=== PATIENT | female | born 1945 | race Caucasian/White ===

== ENCOUNTER 2021-08-20 14:17 | Emergency (ER) | payer MEDICARE, OTHER, SELFPAY ==
--- NOTE | ~2021-08-20 | CT_ITS ---
EXAMINATION: CT abdomen pelvis wo con DATE: 08/20/2021 14:51 INDICATION: Left flank increased pain. Past history of kidney stones TECHNIQUE: Computed tomography (CT) of the abdomen and pelvis was performed without intravenous contr ast. Automated exposure control and iterative reconstruction technique were employed. Exam dose: 689 .56 mGy-cm total exam DLP. COMPARISON: None. FINDINGS: Minimal dependent atelectasis at the lower lobes. Calcified left lower lobe pulmonary granu elvie. Normal heart size. No pericardial or pleural effusion. Diffuse hepatic steatosis. No hepatic, splenic, pancreatic space-occupying mass lesion. Status post cholecystectomy. No bile duct or pancreatic duct dilatation. Approximately 16 x 20 mm right adrenal mass and approximately 8 x 13 mm left adrenal mass, likely due to adenomas if there is no known malignancy. Approximately 2.7 x 5 mm nonobstructing right renal calculus. Approximately 4.3 x 6.9 mm nonobstructi ng left renal calculus. Status post lower pole left renal resection or scarring. No apparent renal mass lesion is evident on this limited noncontrast examination. No left or right ureteral calculus or left or right hydroureteronephrosis. The urinary bladder appears essentially unremarkable. There is considerable streak artifact from a ri ght total hip replacement, limiting evaluation of the pelvic structures. The uterus and adnexal areas appear unremarkable. There is calcification but normal caliber of the abdominal aorta. No intraperitoneal or retroperitone al or pelvic mass lesion or adenopathy or ascites. There are multiple diverticula of the sigmoid and descending colon; no CT evidence of diverticulitis. No bowel obstruction or intraperitoneal free air. Status post right total hip arthroplasty. Prominent left hip osteoarthritis. There is osteopenia. There is degenerative change of the thoracic and lumbar spine. IMPRESSION: Suggestion of partial resection of the lower pole of the left kidney There is a nonobstructing calculus of each kidney. No urinary tract obstruction or hydroureteronephro sis Hepatic steatosis Status post cholecystectomy Bilateral adrenal masses, likely adenomas if there is no known history of cancer Diverticulosis of left colon; no evidence of diverticulitis Right hip arthroplasty Reviewed, dictated and finalized at [facility]. Reviewed, dictated and finalized at [facility]. IMPRESSION: Suggestion of partial resection of the lower pole of the left kidn ey There is a nonobstructing calculus of each kidney. No urinary tract obstruction or hydroureteronephrosis Hepatic steatosis Status post cholecystectomy Bilateral adrenal masses, likely adenomas if there is no known history of cance r Diverticulosis of left colon; no evidence of diverticulitis Right hip arthroplasty
[2021-08-20 14:22] VITALS: BP 179/73; PULSE 75; RESP 18; TEMP 36.7; O2SAT 95
--- NOTE | 2021-08-20 14:31 | ED.ABDPAIN ---
HPI - Abdominal Pain General Chief Complaint: Abdominal Pain Stated Complaint: L flank pain Time Seen by Provider: 08/20/21 14:21 History of Present Illness HPI narrative: 75-year-old female here for evaluation of right flank pain. Patient states that the pain has been intermittent for about a week. He does have a history of kidney stones, and she does note that she has passed several kidney stone spontaneously over the past week since developing the pain. Today, the pain is more severe, has been relatively constant, and she has not passed a kidney stone yet today. Denies taking any medication for her pain. Denies nausea, vomiting, diarrhea, abdominal pain, fevers, dysuria, hematuria. Related Data Home Medications Medication Instructions Recorded Confirmed Albuterol Inhaler 02/08/19 Flonase Allergy Relief 02/08/19 Lantus Solostar U-100 Insulin 02/08/19 Victoza 3-Hermelindo 02/08/19 Vitamin D3 02/08/19 coenzyme Q10 10 mg capsule 10 mg PO ONCE 02/08/19 02/08/19 diltiazem HCl 120 mg 120 mg PO BID 02/08/19 02/08/19 capsule,extended release 12 hr fluticasone furoate 200 1 inh inhalation DAILY 02/08/19 02/08/19 mcg-vilanterol 25 mcg/dose inhalation powder (Breo Ellipta) glimepiride 2 mg tablet 2 mg PO QAM 02/08/19 02/08/19 montelukast 10 mg tablet 10 mg PO HS 02/08/19 02/08/19 omega 8-nzl-hyb-fish oil 1,000 mg 1 cap PO DAILY 02/08/19 02/08/19 (120 mg-180 mg) capsule (Fish Oil) omeprazole 20 mg tablet,delayed 20 mg PO DAILY 02/08/19 02/08/19 release oxybutynin chloride 5 mg tablet 5 mg PO BID 02/08/19 02/08/19 rosuvastatin 10 mg tablet 10 mg PO DAILY 02/08/19 02/08/19 Allergies Allergy/AdvReac Type Severity Reaction Status Date / Time Contrast Media Allergy Severe SEVERE Uncoded 08/09/15 13:04 BACK ACHE Review of Systems Review of Systems: Gen: Denies fevers or chills Eyes: Denies eye pain or visual change ENT: Denies congestion Respiratory: Denies shortness of breath or cough CV: Denies chest pain or palpitations GI: Denies abdominal pain nausea, emesis or diarrhea denies burning, urgency, frequency or hematuria Musculoskeletal: Reports flank pain. Denies back pain or muscle pain Neuro: Denies numbness, tingling, weakness or focal weakness Skin: Denies rash Except as documented, all other systems reviewed and negative PMFSH Family History Family History Mother Family history of malignant neoplasm of urinary bladder Father Family history of heart disease in male family member before age 55 Social History Social History Smoking status: Never smoker Alcohol intake: never Exam Narrative: APPEARANCE: Well appearing, no pain in distress, well-nourished. Head: Normocephalic and atraumatic. EYES: PERRLA/EOMI, conjunctivae clear NOSE: No nasal drainage EARS: External ear normal in appearance THROAT: Oropharynx is clear. Mucous membranes are moist. NECK: Supple. No adenopathy, no masses. RESPIRATORY: Airway patent, respirations nonlabored. Clear to auscultation bilaterally, no rales, rhonchi, wheezing. CARDIOVASCULAR: Regular rate and rhythm without murmurs, rubs, or gallops. ABDOMINAL: Normoactive bowel sounds. Soft, nontender, nondistended. No rebound tenderness or guarding. MUSCULOSKELETAL: No midline tenderness to C,T or L-spine. No CVA tenderness. Extremities are warm and well-perfused. Moves all extremities well. No edema. NEURO: Normal speech. No focal neurologic deficits. SKIN: Skin is warm and dry. No rashes. PSYCHIATRIC: Normal affect/mood. Course Vital Signs Vital signs: Vital Signs Temperature 98.1 F 08/20/21 14:22 Pulse Rate 75 08/20/21 14:22 Respiratory Rate 18 08/20/21 14:22 Blood Pressure 179/73 H 08/20/21 14:22 Pulse Oximetry 95 08/20/21 14:22 Oxygen Delivery Room Air 08/20/21 14:22 Temperature 98.1 F 08/20/21 14:22 Pulse Ra
[2021-08-20] MEDS: MORPHINE SULFATE (*CRX) 4 MG/ML INJ IV PUSH (14:35)
[2021-08-20 15:17] LABS: Basophils Percent Auto 0.4 % (0.2-1.2); Eosinophils Absolute Auto 0.1 K/mm3 (0-0.3); Eosinophils Percent Auto 1.2 % (0-4.4); Hematocrit 46.7 % (37.0-47.0); Hemoglobin 15.4 g/dL (12.0-15.0); Immature Granulocyte Absolute 0.03 K/mm3 (0.00-0.031); Immature Granulocyte Percent A 0.3 % (0-0.5); Lymphocytes Absolute Auto 2.09 K/mm3 (0.9-3.2); Lymphocytes Percent Auto 23.1 % (18.3-44.2); Mean Corpuscular Hemoglobin 29.8 pg (26-34); Mean Corpuscular Volume 90.3 fl (80-100); Mean Platelet Volume 9.1 fl (7.4-10.4); Monocytes Absolute Auto 0.6 K/mm3 (0.1-0.6); Monocytes Percent Auto 6.5 % (2.6-8.5); Neutrophils Absolute Auto 6.2 K/mm3 (1.3-6.7); Neutrophils Percent Auto 68.5 % (45.5-73.1); Platelet Count Result 278 k/mm3 (150-375); Red Blood Count 5.17 M/mm3 (4.2-5.4); Red Cell Distribution Width 12.2 % (11.5-14.5); White Blood Count 9.1 K/mm3 (4.5-10.0)
[2021-08-20 15:26] LABS: Alanine Aminotransferase 47 U/L (6-35); Albumin Level 4.5 g/dL (3.5-5.1); Alkaline Phosphatase 84 U/L (38-126); Anion Gap 7 mmol/L (8-16); Aspartate Amino Transferase 34 U/L (14-36); Bilirubin,Total 0.5 mg/dL (0.2-1.3); Blood Urea Nitrogen 15 mg/dL (7-17); Calcium 9.4 mg/dL (8.4-10.2); Carbon Dioxide 30 mmol/L (22-30); Chloride 102 mmol/L (98-107); Estimated CRCL calculation 63 ml/min; Estimated Glomerular Filt Rate > 60; Glucose 123 mg/dL (65-110); Potassium 3.9 mmol/L (3.4-5.0); Sodium 139 mmol/L (137-145)
[2021-08-20 16:30] VITALS: BP 142/70; PULSE 60; RESP 18; O2SAT 99
[2021-08-20 16:57] LABS: Appearance Urine Clear (Clear); Bilirubin Urine Negative (Negative); Color Urine Yellow (Yellow); Glucose Urine UA Negative (Negative); Ketones Urine Negative (Negative); Leukocyte Esterase Ur Trace LEU/UL (Negative); Nitrate Urine Negative (Negative); Protein Urine Negative (Negative); Specific Grav Ur 1.025 (1.001-1.035); pH Urine 6.5 (5.0-9.0)
[2021-08-20 17:03] LABS: Mucus Urine Rare /lpf; Squamous Epithelial Cell Urine Rare /hpf (Few); WBC Urine 21-30 /hpf
[2021-08-20 17:04] LABS: Add Urine Microscopic? YES; Blood Urine Trace-Intact (Negative)
[2021-08-20] MEDS: KETOROLAC 15 MG/ML VIAL (*BKC) IV PUSH (17:20)
[2021-08-20 18:33] VITALS: BP 138/72; PULSE 78; RESP 20; O2SAT 99
== END 2021-08-20 18:35 | disposition home or self-care (01) ==
PROVIDERS: Physician Assistant; Emergency Provider Emergency Medicine
DX: N20.0 Calculus of kidney (principal); E11.9 Type 2 diabetes mellitus without complications; K76.0 Fatty (change of) liver, not elsewhere classified; E27.8 Other specified disorders of adrenal gland; K57.90 Diverticulosis of intestine, part unspecified, without perforation or abscess without bleeding; Z96.641 Presence of right artificial hip joint; Z79.4 Long term (current) use of insulin
CPT/HCPCS: 36415; 74176; 80053; 81001; 85025; 87086; 87088; 96374; 96375; 99284; J1885; J2270

== ENCOUNTER 2021-11-22 14:43 | Emergency (ER) | payer MEDICARE, OTHER, SELFPAY ==
--- NOTE | ~2021-11-22 | XR_ITS ---
XR knee RT min 4V 11/22/2021 16:35 Indication: Right knee pain with swelling Procedure: 4 views right knee Comparison: No prior studies for comparison. Findings: There is moderate tricompartment osteoarthritis. Large joint effusion. No fracture or traum atic malalignment. Osteopenia. Impression: 1: Moderate tricompartment osteoarthritis of the right knee. 2: Large joint effusion. Reviewed, dictated and finalized at [facility]. Impression: 1: Moderate tricompartment osteoarthritis of the right knee. 2: Large joint effusion.
--- NOTE | ~2021-11-22 | US_ITS ---
EXAMINATION: US venous doppler LE RT DATE: 11/22/2021 15:51 INDICATION: Right lower limb swelling TECHNIQUE: Moreno scale images without and with compression and Doppler images of the right lower extre mity veins were obtained. COMPARISON: [id number] FINDINGS: The right common femoral vein, profunda femoral vein, femoral vein, popliteal vein, peronea l trunk, posterior tibial veins, and greater saphenous vein are patent. IMPRESSION: 1. Patent right lower extremity veins. No evidence of deep venous thrombosis. Reviewed, dictated and finalized at [facility].
[2021-11-22 14:47] VITALS: BP 158/62; PULSE 80; RESP 18; TEMP 37.1; O2SAT 97
[2021-11-22 15:06] VITALS: BP 169/67; PULSE 74; RESP 16; O2SAT 95
[2021-11-22 15:51] VITALS: BP 156/78; PULSE 72; RESP 16; O2SAT 100
--- NOTE | 2021-11-22 16:20 | ED.EXTPRO ---
HPI - Extremity Problem General Chief complaint: Extremity Problem,Nontraumatic Stated complaint: right leg swelling Time Seen by Provider: 11/22/21 15:42 Source: patient Mode of arrival: ambulatory Limitations: no limitations History of Present Illness HPI Narrative: This is a 76-year-old female that presents to the emergency department for right knee pain ongoing over the last 5 days. Reports she was helping her daughter move and had been lifting some boxes. She noted some swelling and pain to the knee. The swelling and pain has started to radiate down her leg. She was sent from urgent care to evaluate for a DVT. Denies fever, erythema, or warmth. Related Data Home Medications Medication Instructions Recorded Confirmed Albuterol Inhaler 02/08/19 Flonase Allergy Relief 02/08/19 Lantus Solostar U-100 Insulin 02/08/19 Victoza 3-Hermelindo 02/08/19 Vitamin D3 02/08/19 coenzyme Q10 10 mg capsule 10 mg PO ONCE 02/08/19 02/08/19 diltiazem HCl 120 mg 120 mg PO BID 02/08/19 02/08/19 capsule,extended release 12 hr fluticasone furoate 200 1 inh inhalation DAILY 02/08/19 02/08/19 mcg-vilanterol 25 mcg/dose inhalation powder (Breo Ellipta) glimepiride 2 mg tablet 2 mg PO QAM 02/08/19 02/08/19 montelukast 10 mg tablet 10 mg PO HS 02/08/19 02/08/19 omega 4-brn-pze-fish oil 1,000 mg 1 cap PO DAILY 02/08/19 02/08/19 (120 mg-180 mg) capsule (Fish Oil) omeprazole 20 mg tablet,delayed 20 mg PO DAILY 02/08/19 02/08/19 release oxybutynin chloride 5 mg tablet 5 mg PO BID 02/08/19 02/08/19 rosuvastatin 10 mg tablet 10 mg PO DAILY 02/08/19 02/08/19 Allergies Allergy/AdvReac Type Severity Reaction Status Date / Time Contrast Media Allergy Severe SEVERE Uncoded 08/09/15 13:04 BACK ACHE Review of Systems Review of Systems: CONSTITUTIONAL: Denies fever MUSCULOSKELETAL: Reports joint pain, and myalgia. NEUROLOGIC: Denies numbness All systems reviewed & are unremarkable except as noted in HPI and below PMFSH Past Medical History Medical History (Updated 11/22/21 @ 17:09 by Patty Nunez PA-C) History of diabetes mellitus History of hyperlipidemia History of hypertension Family History Family History Mother Family history of malignant neoplasm of urinary bladder Father Family history of heart disease in male family member before age 55 Social History Social History Smoking status: Never smoker Alcohol intake: never Exam Narrative: GENERAL: Well-appearing, well-nourished, and in no acute distress. HEAD: Normocephalic, atraumatic. EYES: EOMI. CHEST: Clear to auscultation. No respiratory distress. No wheezes rales or rhonchi HEART: Regular rate and rhythm. No murmur heard. Normal peripheral pulses. EXTREMITIES: Normal range of motion. Mild edema about the right knee into the lower leg. No erythema or warmth. Normal DP pulse. Normal sensation SKIN: Warm, dry, no rash. NEURO: No focal deficits. Alert and oriented x3. PSYCH: Normal mood and affect Course Vital Signs Vital signs: Vital Signs Temperature 98.7 F 11/22/21 14:47 Pulse Rate 80 11/22/21 14:47 Respiratory Rate 18 11/22/21 14:47 Blood Pressure 158/62 H 11/22/21 14:47 Pulse Oximetry 97 11/22/21 14:47 Oxygen Delivery Room Air 11/22/21 14:47 Temperature 98.7 F 11/22/21 14:47 Pulse Rate 72 11/22/21 15:51 Respiratory Rate 16 11/22/21 15:51 Blood Pressure 156/78 H 11/22/21 15:51 Pulse Oximetry 100 11/22/21 15:51 Oxygen Delivery Room Air 11/22/21 14:47 MDM - Extremity (Nontraumatic) MDM Narrative Medical decision making narrative: Patient presents emergency department for right knee pain and swelling. Was sent from urgent care to rule out DVT. She is afebrile and nontoxic-appearing. There is no erythema or warmth of the leg. She is neurovascularly intact. Right lower extremity venou
[2021-11-22] MEDS: ACETAMINOPHEN 500 MG TABLET 1000 MG PO (16:21)
[2021-11-22 17:00] VITALS: BP 142/70; PULSE 70; RESP 16; TEMP 36.3; O2SAT 96
== END 2021-11-22 17:15 | disposition home or self-care (01) ==
PROVIDERS: Emergency Provider Emergency Medicine
DX: M25.461 Effusion, right knee (principal); E11.9 Type 2 diabetes mellitus without complications; E78.5 Hyperlipidemia, unspecified; I10 Essential (primary) hypertension; Z79.84 Long term (current) use of oral hypoglycemic drugs; Z79.4 Long term (current) use of insulin; M17.11 Unilateral primary osteoarthritis, right knee
CPT/HCPCS: 73564; 93971; 99284; A9270

== ENCOUNTER 2022-01-13 16:27 | Outpatient (CLI) | payer MEDICARE, OTHER, SELFPAY ==
--- NOTE | ~2022-01-13 | US_ITS ---
EXAMINATION:US venous doppler LE RT INDICATION:Right lower extremity pain TECHNIQUE: Multiple grayscale, color flow and Doppler images of the right lower extremity deep venous systems were obtained and reviewed. COMPARISON:11/22/2021 FINDINGS: The common femoral, superficial femoral and popliteal veins demonstrate normal respiratory variation, augmentation and compressibility. Color flow is also seen within the posterior tibial, pe roneal, greater saphenous and profunda veins. IMPRESSION: 1: No lower extremity deep venous thrombosis. Reviewed, dictated and finalized at location [facility]. [employer]
== END 2022-01-13 16:28 | disposition home or self-care (01) ==
LOC: ANHIMG 16:29
PROVIDERS: PCP Internal Medicine Endocrinology, Diabetes & Metabolism; Visit Provider Nurse Practitioner Family
DX: M79.661 Pain in right lower leg (principal)
CPT/HCPCS: 93971